=== PATIENT | male | born 1950 | race Caucasian/White ===

== ENCOUNTER 2017-11-10 10:03 | Day surgery (SDC) | payer BC ==
[~2017-11-10] VITALS: Ht 172.7 cm; Wt 87.7 kg
[~2017-11-10 10:03] MED LIST: ASPIRIN 32325 MG/TAB; CIALIS10 MG PO; COMPAZINE 110 MG/TAB PO; LIPITOR 40MG TA40 MG; PRINIVIL5 MG PO; TOPROL XL 25MG25 MG; TOPROL XL100 MG PO; VASOTEC 5MG5 MG/TAB
[2017-11-10 10:37] VITALS: BP 120/78; PULSE 82; TEMP 97.6
[2017-11-10] MEDS ORDERED: GLUCOTROL 5M5 MG/TAB PO (10:42)
[2017-11-10] MEDS ORDERED: CRESTOR20 MG PO (10:42)
[2017-11-10] MEDS ORDERED: VICTOZA6 MG/ML SQ (10:43)
[2017-11-10] MEDS ORDERED: JANUMXR100-1000 PO (10:43)
[2017-11-10] MEDS ORDERED: OMEGA-3 1000 MG1 CAP PO (10:44)
[2017-11-10] MEDS ORDERED: STRIANT30 MG BC (10:45)
[2017-11-10 11:42] VITALS: BP 91/57; PULSE 74; TEMP 97.6
[2017-11-10 12:00] VITALS: BP 82/59; PULSE 73
[2017-11-10 12:39] VITALS: BP 104/57; PULSE 67
== END 2017-11-10 12:20 | disposition home or self-care (01) ==
LOC: SDCO 10:03
DX: Z12.11 Encounter for screening for malignant neoplasm of colon (principal); D12.5 Benign neoplasm of sigmoid colon; E11.9 Type 2 diabetes mellitus without complications; I10 Essential (primary) hypertension; K57.30 Diverticulosis of large intestine without perforation or abscess without bleeding
CPT/HCPCS: OP; J2250; J3010; J7030

== ENCOUNTER → 2018-08-21 | Outpatient (CLI) | payer BC ==
[~2018-08-21] MED LIST changes: +CRESTOR20 MG PO; +GLUCOTROL 5M5 MG/TAB PO; +JANUMXR100-1000 PO; +OMEGA-3 1000 MG1 CAP PO; +STRIANT30 MG BC; +VICTOZA6 MG/ML SQ
== END ==
LOC: MHCPAIN 08:44
DX: G89.29 Other chronic pain (principal); M47.817 Spondylosis without myelopathy or radiculopathy, lumbosacral region; M54.16 Radiculopathy, lumbar region; M53.3 Sacrococcygeal disorders, not elsewhere classified
CPT/HCPCS: G0463

== ENCOUNTER → 2018-08-27 | Outpatient (CLI) | payer BC | LOC: MHCPAIN 08:44 | DX: M47.817 Spondylosis without myelopathy or radiculopathy, lumbosacral region (principal); M54.16 Radiculopathy, lumbar region | CPT/HCPCS: J1100; Q9967 ==

== ENCOUNTER 2018-09-12 11:00 | Outpatient (RCR) | payer BC | END 2018-11-04 | disposition home or self-care (01) | LOC: WSPT | DX: M54.16 Radiculopathy, lumbar region (principal); Z79.84 Long term (current) use of oral hypoglycemic drugs; Z79.82 Long term (current) use of aspirin; Z79.899 Other long term (current) drug therapy; Z79.891 Long term (current) use of opiate analgesic ==

== ENCOUNTER → 2018-09-12 | Outpatient (CLI) | payer BC | LOC: MHCPAIN 08:56 | DX: G89.29 Other chronic pain (principal); M47.817 Spondylosis without myelopathy or radiculopathy, lumbosacral region; M54.16 Radiculopathy, lumbar region; M53.3 Sacrococcygeal disorders, not elsewhere classified | CPT/HCPCS: G0463 ==